=== PATIENT | male | born 1975 | race African-American/Black ===

== ENCOUNTER 2017-05-08 09:52 | Emergency (ER) | payer MEDICAID ==
[~2017-05-08] VITALS: Ht 175.3 cm; Wt 78.0 kg
[2017-05-08 09:59] VITALS: BP 137/80
== END 2017-05-08 13:26 | disposition home or self-care (01) ==
LOC: ER 12:31
DX: H60.91 Unspecified otitis externa, right ear (principal)
CPT/HCPCS: 99283

== ENCOUNTER 2022-04-21 06:09 | Emergency (ER) | payer MEDICAID ==
[~2022-04-21] VITALS: Ht 170.2 cm; Wt 75.0 kg
[2022-04-21 07:36] VITALS: BP 134/60
[2022-04-21] MEDS ORDERED: ACETAMINOPHEN 325MG TABLET PO ONE (11:15)
[2022-04-21] MEDS ORDERED: TOPUD MT (13:36)
[2022-04-21] MEDS ORDERED: ACET-2708 MT ×2 (13:36)
[2022-04-21] MEDS ORDERED: BENZ100C86 MT (13:42)
== END 2022-04-21 14:22 | disposition home or self-care (01) ==
LOC: ER 06:09
DX: U07.1 COVID-19 (principal); B34.9 Viral infection, unspecified
CPT/HCPCS: 87426; 87804; 99283; C9803